=== PATIENT | male | born 1950 | race Caucasian/White ===

== ENCOUNTER → 2022-12-14 | Outpatient (CLI) | payer MEDICARE ==
[~2022-12-14] MED LIST: LATA.005SO BOTHEYES; TIMOLOL MALEATE 0.5%
== END ==
LOC: LAB 16:07 → LAB SHORT 16:07
PROVIDERS: Nurse Practitioner Family
DX: Z12.5 Encounter for screening for malignant neoplasm of prostate (principal)
CPT/HCPCS: G0103

== ENCOUNTER 2023-09-10 08:58 | Emergency (ER) | payer MEDICARE ==
[~2023-09-10] VITALS: Ht 172.7 cm; Wt 74.8 kg
[2023-09-10] MEDS ORDERED: Rabies Vaccine (Pcec)/Pf 1 mL 2.5 Unit Kit IM ONE (09:20)
[2023-09-10] MEDS ORDERED: Rabies Immune Globulin 150 IU / ML 2ML Vial IM ONE (09:25)
[2023-09-10] MEDS ORDERED: [UNRECOGNIZED DRUG - OTHER] IM ONE (09:40)
[2023-09-10] MEDS ORDERED: RABIES IMMUNE GLOBULIN 300 UNIT/ML IM ONE (09:40)
[2023-09-10 10:21] VITALS: BP 137/72
== END 2023-09-10 10:19 | disposition home or self-care (01) ==
LOC: ER 08:58
DX: Z20.3 Contact with and (suspected) exposure to rabies (principal); Z23 Encounter for immunization; Z79.899 Other long term (current) drug therapy
CPT/HCPCS: 90376; 90471; 99283-25

== ENCOUNTER 2023-09-13 07:06 | Emergency (ER) | payer MEDICARE ==
[~2023-09-13] VITALS: Ht 177.8 cm; Wt 68.0 kg
[2023-09-13 07:50] VITALS: BP 149/95
[2023-09-13] MEDS ORDERED: Rabies Vaccine (Pcec)/Pf 1 mL 2.5 Unit Kit IM ONE (08:10)
== END 2023-09-13 08:49 | disposition home or self-care (01) ==
LOC: ER 07:06
DX: Z29.14 Encounter for prophylactic rabies immune globulin (principal); Z23 Encounter for immunization
CPT/HCPCS: 90471

== ENCOUNTER 2023-09-17 07:49 | Emergency (ER) | payer MEDICARE ==
[~2023-09-17] VITALS: Ht 177.8 cm; Wt 68.0 kg
[2023-09-17 08:04] VITALS: BP 188/94
[2023-09-17] MEDS ORDERED: Rabies Vaccine (Pcec)/Pf 1 mL 2.5 Unit Kit IM ONE (08:10)
== END 2023-09-17 08:30 | disposition home or self-care (01) ==
LOC: ER 07:49
DX: Z20.3 Contact with and (suspected) exposure to rabies (principal); Z23 Encounter for immunization

== ENCOUNTER 2023-09-24 07:49 | Emergency (ER) | payer MEDICARE ==
[2023-09-24] MEDS ORDERED: Rabies Vaccine (Pcec)/Pf 1 mL 2.5 Unit Kit IM ONE (08:35)
== END 2023-09-24 08:39 | disposition home or self-care (01) ==
LOC: ER 07:49
DX: Z23 Encounter for immunization (principal); Z20.3 Contact with and (suspected) exposure to rabies
CPT/HCPCS: 90471

== ENCOUNTER 2024-01-21 00:04 | Emergency (ER) | payer MEDICARE ==
[~2024-01-21] VITALS: Ht 177.8 cm; Wt 64.4 kg
[2024-01-21 00:51] LABS: BASOPHILS ABSOLUTE AUTO 0.05 K/mm3 (0.00-0.23); BASOPHILS PERCENT AUTO 0 % (0-2); EOSINOPHILS ABSOLUTE AUTO 0.05 K/mm3 (0.00-0.68); EOSINOPHILS PERCENT AUTO 0 % (0-6); Hematocrit 39.7 % (37.0-53.0); Hemoglobin 13.4 g/dL (13.5-17.5); IMMATURE GRAN ABSOLUTE AUTO 0.07 K/mm3 (0.00-0.10); IMMATURE GRAN PERCENT AUTO 0 % (0-1); LYMPHOCYTES ABSOLUTE AUTO 2.93 K/mm3 (0.84-5.20); LYMPHOCYTES PERCENT AUTO 18 % (21-46); MONOCYTES ABSOLUTE AUTO 1.44 K/mm3 (0.16-1.47); MONOCYTES PERCENT AUTO 9 % (4-13); Mean Corpuscular HGB 29.9 pg (26.0-34.0); Mean Corpuscular HGB Conc 33.8 g/dL (31.5-36.5); Mean Corpuscular Volume 89 fL (80-100); Mean Platelet Volume 8.7 fL (9.1-12.4); NEUTROPHILS ABSOLUTE AUTO 11.92 K/mm3 (1.96-9.15); NEUTROPHILS PERCENT AUTO 73 % (41-73); Platelet Count 285 K/mm3 (150-400); RDW Coefficient Variation 12.9 % (11.7-14.2); RDW Standard Deviation 41.9 fL (35.1-46.3); Red Blood Cell Count 4.48 M/mm3 (4.30-5.90); White Blood Cell Count 16.46 K/mm3 (4.00-11.30)
[2024-01-21 01:22] LABS: Albumin, Blood 2.7 g/dL (3.4-5.0); Albumin/Globulin Ratio 0.6 (0.8-1.8); Bilirubin, Total 0.8 mg/dL (0.1-1.0); Bun/Creatinine Ratio 21.9 (12.0-20.0); Calcium, Blood 8.9 mg/dL (8.5-10.1); Creatinine, Blood 0.87 mg/dL (0.60-1.20); Globulin, Blood 4.6 g/dL (2.2-4.0); Potassium, Blood 3.8 mmol/L (3.5-5.5); Total Protein, Blood 7.3 g/dL (6.4-8.2)
[2024-01-21 01:46] LABS: Source, Urine Clean Catch
[2024-01-21 02:13] LABS: Bilirubin, Urine Neg (Neg); Blood, Urine Neg (Neg); Glucose Qualitative, Urine Neg (Neg); Ketones, Urine Neg (Neg); Leukocyte Esterase, Urine Neg (Neg); Nitrite, Urine Neg (Neg); Protein, Urine 1+ (Neg); Urobilinogen, Urine NORM (Normal)
[2024-01-21 02:32] LABS: Appearance, Urine Clear (Clear); Color, Urine Yellow (P-Yellow)
[2024-01-21] MEDS ORDERED: FentaNYL Citrate 50 MCG/ML 2 ML Injection IV ONE (03:20)
[2024-01-21] MEDS ORDERED: Ondansetron HCl 2 MG / ML 2ML Vial IV ONE (04:20)
[2024-01-21] MEDS ORDERED: Morphine Sulfate 4 MG/1 ML Injection IV ONE (04:20)
[2024-01-21 04:47] VITALS: BP 154/91
[2024-01-21] MEDS ORDERED: Amoxicillin/Clavulanate K 875 MG Tab PO ONE (05:20)
[2024-01-21] MEDS ORDERED: AMOCLA875 PO (05:20)
[2024-01-21] MEDS ORDERED: NS 1,000 ML IV SCH (05:20)
== END 2024-01-21 06:40 | disposition home or self-care (01) ==
LOC: ER 00:04
PROVIDERS: Student in an Organized Health Care Education/Training Program
DX: J18.9 Pneumonia, unspecified organism (principal); Z79.899 Other long term (current) drug therapy
CPT/HCPCS: 74177; 80053; 85025; 96374; 96375; 99284-25; A9270; J2270; J2405; J3010; J7030; Q9967

== ENCOUNTER 2025-02-05 12:54 | Day surgery (SDC) | payer MEDICARE ==
[2025-02-05] VITALS (35 sets, daily range): BP systolic 80–178; BP diastolic 45–159
[~2025-02-05] VITALS: Ht 175.3 cm; Wt 72.3 kg
[~2025-02-05 12:54] MED LIST changes: +AMOCLA875 PO; +TIMOLOL5 ML BOTHEYES
--- NOTE | 2025-02-05 13:40 | NUR ---
Ambulatory in Day Surgery. History, Chart, Medications and Allergies reviewed before start of procedure. Patient confirms NPO status and agrees with scheduled surgery. Pre-Op teaching done. Pt verbalizes understanding. Patient States Post-Procedure ride home has been arranged.
--- NOTE | 2025-02-05 13:59 | NUR ---
02/05/25 0047 Chance Ruelas CONFIRMED AND REVIEWED H&P, MEDCICATIONS, ALLERGIES, MEDICAL HISTORY, RESPIRATORY HISTORY, VITAL SIGNS, 3-LEAD EKG, CONSENTS, AND PHYSICIAN ORDERS. PATIENT CONFIRMS NPO STATUS AND AGREES WITH SCHEDULED PROCEDURE. MONITOR INTACT WITH CONTINUOUS PULSE OXIMETRY, CAPNOGRAPHY, 3-LEAD EKG, INTERMITTENT BP. SUPPLEMENTAL O2 TO BE TITRATED THROUGHOUT PROCEDURE TO MAINTAIN O2 SATURATION ABOVE 90%. PATIENT DETERMINED TO BE ASA APPROPRIATE FOR PROPOFOL SEDATION PRIOR TO START OF PROCEDURE BY DR. MESA.
--- NOTE | 2025-02-05 15:40 | NUR ---
PT BEEN TO IMAGING BY DAVID. PT IV INFILTRATED. RESERVATIONS AND TICKETING AGENT REPORTS THAT THE PT APPEARS TO HAVE A GOOD AMT OF CONTRAST ON CT. HYPOID GEAR GENERATOR NOTIFIED WHEN PT BACK TO SDS/STEP DOWN (WHICH WAS APPROX 15:38). PT REPORTS THAT HE FEELS FINE. HEAT APPLIED TO IV SITE, WILL D/C IV AND NOTIFY DR MESA.
--- NOTE | 2025-02-05 16:01 | NUR ---
PT DENIES PAIN,N/V,SOB,CP. IV RECENTLY TAKEN OUT, HEAT APPLIED. DR MESA NOTIFIED. 6 INCH TORSTEN WRAP APPLIED BY STEWARD/STEWARDESS NIGHT PER ORDER. PT GIVEN PO AFTER CLARIFICATION WITH DR MESA. PT APPEARS TO BE LYING COMFORTABLY AND WITH NO COMPLAINTS.
--- NOTE | 2025-02-05 16:17 | NUR ---
REPORT TO Abihjeet KENDALL WHO IS TAKING OVER CARE AT THIS TIME.
--- NOTE | 2025-02-05 16:18 | NUR ---
Patient up to Ambulate independently. Gait steady. Discharge instructions reviewed with patient. Patient verbalizes understanding. Copy given to patient to take home. Patient States Post-Procedure ride home has been arranged. PT DENIES PAIN,SOB,CP. TORSTEN WRAP IN PLACE. CIRC CHECK WNL.
--- NOTE | 2025-02-05 16:22 | NUR ---
REPORT FROM MELINDA CEJA RN. PT VSS, SITTING UP IN BED, TOLERATING PO FLUIDS, TORSTEN WRAP IN PLACE ON RIGHT WRIST, CAP REFILL <2 SECONDS. PT REQUESTING TO DC HOME.
[2025-02-05 17:03] LABS: Carcinoembryonic Antigen 1.5 ng/mL (0.0-3.0)
== END 2025-02-05 23:40 | disposition home or self-care (01) ==
LOC: ORSCMMR 12:54 → ORD 14:15 → ORSCMMR 14:15
PROVIDERS: Surgery
PROC: 0DBH8ZX Excision of Cecum, Via Natural or Artificial Opening Endoscopic, Diagnostic (ICD-10-PCS; principal; 2025-02-05 14:15)
PROC: 0DBL8ZX Excision of Transverse Colon, Via Natural or Artificial Opening Endoscopic, Diagnostic (ICD-10-PCS; principal; 2025-02-05 14:15)
PROC: 0DBK8ZX Excision of Ascending Colon, Via Natural or Artificial Opening Endoscopic, Diagnostic (ICD-10-PCS; principal; 2025-02-05 14:15)
PROC: 0DBN8ZX Excision of Sigmoid Colon, Via Natural or Artificial Opening Endoscopic, Diagnostic (ICD-10-PCS; principal; 2025-02-05 14:15)
PROC: 0DBM8ZX Excision of Descending Colon, Via Natural or Artificial Opening Endoscopic, Diagnostic (ICD-10-PCS; principal; 2025-02-05 14:15)
PROC: 3E0H8KZ Introduction of Other Diagnostic Substance into Lower GI, Via Natural or Artificial Opening Endoscopic (ICD-10-PCS; principal; 2025-02-05 14:15)
DX: Z12.11 Encounter for screening for malignant neoplasm of colon (principal); R19.5 Other fecal abnormalities; D12.0 Benign neoplasm of cecum; D12.2 Benign neoplasm of ascending colon; D12.3 Benign neoplasm of transverse colon; D12.5 Benign neoplasm of sigmoid colon; D12.4 Benign neoplasm of descending colon; K64.0 First degree hemorrhoids
CPT/HCPCS: 36415; 71260; 74177; 82378; 86301; 86304; 88305; J2704; J7120; Q9967